=== PATIENT | male | born 1975 | race Caucasian/White ===

== ENCOUNTER 2022-08-04 05:37 | Outpatient (CLI) | payer BC ==
[~2022-08-04] VITALS: Ht 172.7 cm; Wt 98.4 kg
[2022-08-04] MEDS ORDERED: CETI10TA49 PO (16:11)
== END 2022-08-04 16:12 | disposition home or self-care (01) ==
LOC: PREOP 05:37
PROVIDERS: ATTEND Surgery
DX: Z01.818 Encounter for other preprocedural examination (principal)

== ENCOUNTER → 2022-08-17 | Day surgery (SDC) | payer BC ==
[2022-08-17] VITALS (7 sets, daily range): BP systolic 112–122; BP diastolic 56–73
[~2022-08-17] VITALS: Ht 172.7 cm; Wt 98.4 kg
[~2022-08-17] MED LIST: CETI10TA49 PO; HURRICAINE EXT TUBE (BENZOCAINE) XX PRN; LACTATED RINGERS 1,000 ML IV STA; MIDAZOLAM 2 MG/2 ML (VERSED) VIAL ONE; PROPOFOL INJECTION 50 ML IV ONE
--- NOTE | 2022-08-17 09:40 | Progress Note-Pre Operative ---
Pre-Operative Progress Note Date H&P Reviewed: Aug 17, 2022 Time H&P Reviewed: 09:40 History & Physical: H&P Reviewed, Patient Examed, No changes noted Pre-Operative Diagnosis: gerd/screening colonoscopy HERLINDA KASPER DO Aug 17, 2022 09:40
--- NOTE | 2022-08-17 11:29 | Discharge Inst-Simple/Standard ---
Discharge Inst-Standard Patient Instructions/Follow Up Plan of Care/Instructions/FU: 2 weeks Vicki Activity as Tolerated: Yes Discharge Diet: Regular Diet HERLINDA KASPER DO Aug 17, 2022 11:29
--- NOTE | 2022-08-17 11:30 | Progress Note-Post Operative ---
Post-Operative Progess Note Surgeon (s)/Furnace Mechanic Helper (s) Surgeon HERLINDA KASPER DO Furnace Mechanic Helper: na Pre-Operative Diagnosis gerd/screening colonoscopy Post-Operative Diagnosis small hiatal hernia, noraml colonoscopy Procedure & Operative Findings Date of Procedure 08/17/22 Procedure Performed/Findings egd c biopsies, colonoscopy Anesthesia Type per hardware engineering manager Estimated Blood Loss Estimated blood loss (mL): none Specimens/Packing Specimens Removed antrum, ge HERLINDA KASPER DO Aug 17, 2022 11:30
--- NOTE | 2022-08-17 11:35 | Anesthesia-General Post-Op ---
MAC Patient Condition Mental Status/LOC: Same as Preop Cardiovascular: Satisfactory Nausea/Vomiting: Absent Respiratory: Satisfactory Pain: Controlled Complications: Absent Post Op Complications Complications None Follow Up Care/Instructions Patient Instructions None needed. Anesthesiology Discharge Order Discharge Order Patient is doing well, no complaints, stable vital signs, no apparent adverse anesthesia problems. No complications reported per nursing. GEOFFREY MOSS CRNA Aug 17, 2022 11:35
--- NOTE | 2022-08-17 13:51 | OPERATIVE REPORT ---
DATE OF SERVICE: 08/17/2022 PREOPERATIVE DIAGNOSES: Gastroesophageal reflux disease, screening colonoscopy. POSTOPERATIVE DIAGNOSES: Small hiatal hernia, normal colon. PROCEDURE: EGD with biopsies, colonoscopy. SURGEON: Herlinda Cohen DO ANESTHESIA: Per [employer]PER[employer]ENT [employer]. ESTIMATED BLOOD LOSS: None. COMPLICATIONS: None. INDICATIONS: The patient is a 46-year-old male with GERD and needing screening colonoscopy. He understands risks and benefits of procedure and wishes to proceed. Consent was signed in chart. DESCRIPTION OF PROCEDURE: The patient was taken to endoscopy suite, placed in left lateral recumbent position. Timeout was performed. Scope was inserted in the mouth, down the esophagus, stomach, into the duodenum without difficulty. There were no polyps, masses, ulcerations in the duodenum. Scope was slowly retracted back until stomach where it was further insufflated. Biopsy of the antrum was obtained. Scope was retroflexed noting a small hiatal hernia, no other pathology noted within the stomach. Scope was then slowly retracted back to the distal esophagus. No polyps, masses or ulcerations. Biopsy of the GE junction was obtained. Scope was slowly retracted back until completely removed. The patient tolerated the procedure well without any complications and was taken to recovery room in stable condition. RECOMMENDATIONS: The patient will need repeat colonoscopy in 10 years unless family history of colon cancer, which will then be 5 years. Any issues be seen at that time. We will follow up on upper endoscopy biopsies. Further recommendations pending those results. Job ID: [id number] DocumentID: [id number] Dictated Date: 08/17/2022 11:32:46 Steam Frame Operator Date: 08/17/2022 13:49:00 Dictated By: HERLINDA COHEN DO
== END | disposition home or self-care (01) ==
LOC: ENDO 09:14
PROVIDERS: ATTEND Surgery
DX: Z12.11 Encounter for screening for malignant neoplasm of colon (principal); K44.9 Diaphragmatic hernia without obstruction or gangrene; K21.9 Gastro-esophageal reflux disease without esophagitis; G47.33 Obstructive sleep apnea (adult) (pediatric)